=== PATIENT | male | born 1980 | race Caucasian/White ===

== ENCOUNTER 2016-08-05 09:10 | Emergency (ER) | payer OTHER ==
[~2016-08-05] VITALS: Ht 177.8 cm; Wt 79.9 kg
[~2016-08-05 09:10] MED LIST: BUPR300T43 PO; BUSP15TA70 PO; CITA10TA4 PO; LISI-729 PO
[2016-08-05 09:17] VITALS: TEMP 37; Ht 177.8 cm; Wt 79.9 kg
--- NOTE | 2016-08-05 11:29 | DIAGNOSTIC IMAGING REPORT ---
MRI OF THE RIGHT HINDFOOT CLINICAL HISTORY: Right Achilles pain and swelling COMPARISON STUDY: 02/25/2007 FINDINGS: Imaging was performed in the sagittal, coronal, and axial planes. There is accessory ossicle versus old ununited fracture fragment involving the posterior malleolus of the distal tibia. There are secondary degenerative changes with subchondral cysts and reactive marrow edema. There is fusiform enlargement of the Achilles tendon which measures 21 x 20 mm. There is abnormal T2 signal within the tendon substance. The findings are consistent with a partial tear. There is slight flattening of the talar dome. This remains unchanged the prior 2006 conventional radiographic study. This may be developmental. No abnormalities the plantar fascia are visualized. There is no evidence of major ligamentous disruption. IMPRESSION: 1. Marked fusiform enlargement of the Achilles tendon. The findings are consistent with a tendinopathy with an extensive partial thickness tear. 2. Accessory ossicle versus an old ununited fracture fragment involving the posterior malleolus of the distal tibia. There are secondary degenerative changes present. Electronically signed by: Олег Hernandez M.D. 08/05/2016 11:28 AM Dictated Date/Time: 08/05/2016 11:21 AM
--- NOTE | 2016-08-05 12:04 | EMERGENCY ROOM VISIT NOTE ---
History Report prepared by Arronibsherie: Flori Rivas Under the Supervision of: Dr. Scotty Berg D.O. First contact with patient: 09:38 Chief Complaint: HEEL PAIN Stated Complaint: LARGE KNOT ON ACHILLES TENDON History of Present Illness The patient is a 36 year old male who presents to the Emergency Room with complaints of worsening right posterior heel pain that began about a month ago. He states that he woke up with swelling around his Achilles tendon a month ago. He notes that he did not have any change in his physical activity and did not recall any injuries. He had an x-ray at his PCP's office. He then had an MRI scheduled, but could not make his appointment and has not had the MRI yet. Since then, his pain has continued to worsen. He notes that his swelling is not too bad in the morning but worsens throughout the day. His pain is worse with bearing weight and walking. Per significant other, the patient cannot take NSAIDs due to nephrotic syndrome. Source of History: patient Onset: a month ago Position: foot (right posterior heel) Timing: worsening Modifying Factors (Worsening): other (bearing weight, walking) Review of Systems See HPI for pertinent positives & negatives. A total of 10 systems reviewed and were otherwise negative. Past Medical & Surgical Medical Problems: (1) CHF (congestive heart failure) Family History FHx: cancer Social History Smoking Status: Current Every Day Smoker Alcohol Use: occasionally Drug Use: none Marital Status: single Housing Status: lives with family Occupation Status: employed Current/Historical Medications Scheduled Bupropion Hcl (Bupropion Hcl Xl), 300 MG PO DAILY Lisinopril (Zestril), 5 MG PO DAILY Allergies Coded Allergies: NSAIDs (Verified Allergy, Unknown, Unknown, 08/05/16) Reported by PT Poison Kerry Extract/Poison [place] Extra (Verified Adverse Reaction, Intermediate, RASH, 08/05/16) Physical Exam Vital Signs Date Time Temp Pulse Resp B/P Pulse Ox O2 Delivery O2 Flow Rate FiO2 08/05/16 11:25 75 18 142/77 99 Room Air 08/05/16 09:17 37.0 87 18 126/80 99 Room Air Physical Exam CONSTITUTIONAL/VITAL SIGNS: Reviewed / noted above. GENERAL: Non-toxic in appearance. INTEGUMENTARY: Warm, dry, and [place]. HEAD: Normocephalic. EYES: without scleral icterus or trauma. ENT/OROPHARYNX: clear and moist. LYMPHADENOPATHY/NECK: Is supple without lymphadenopathy or meningismus. RESPIRATORY: Lungs clear and equal. CARDIOVASCULAR: Regular rate and rhythm. GI/ABDOMEN: Soft and nontender. No organomegaly or pulsatile mass. No rebound or guarding. Normal bowel sounds. EXTREMITIES: Warm and well perfused. There is swelling to the right Achilles with some tenderness, no redness. BACK: No CVA tenderness. NEUROLOGICAL: Intact without focal deficits. PSYCHIATRIC: normal affect. MUSCULOSKELETAL: Normally developed with good muscle tone. Medical Decision & Procedures ER Provider Diagnostic Interpretation: Radiology results as stated below per my review and radiologist interpretation: MRI OF THE RIGHT HINDFOOT CLINICAL HISTORY: Right Achilles pain and swelling COMPARISON STUDY: 02/25/2007 FINDINGS: Imaging was performed in the sagittal, coronal, and axial planes. There is accessory ossicle versus old ununited fracture fragment involving the posterior malleolus of the distal tibia. There are secondary degenerative changes with subchondral cysts and reactive marrow edema. There is fusiform enlargement of the Achilles tendon which measures 21 x 20 mm. There is abnormal T2 signal within the tendon substance. The findings are consistent with a partial tear. There is slight flattening of the talar dome. This remains unchanged the prior 2006 conventional radiographic study. This may be developmental. No abnormalities the plantar fascia are visualized. There is no evidence of major ligamentous disruption. IMPRESSION: 1. Marked fusiform enlargement of the Achilles tendon. The findings are consistent with a tendinopathy with an extensive partial thickness tear. 2. Accessory ossicle versus an old ununited fracture fragment involving the posterior malleolus of the distal tibia. There are secondary degenerative changes present. Electronically signed by: Олег Hernandez M.D. 08/05/2016 11:28 AM Dictated Date/Time: 08/05/2016 11:21 AM ED Course 0942: The patient was evaluated in room D2. A complete history and physical examination was performed. 1152: On reevaluation, the patient is resting comfortably. I discussed the results and findings with the patient. He verbalized agreement of the treatment plan. The patient was discharged home. Medical Decision Differential includes but is not limited to tendon injury, fracture, infection, other inflammatory process. This is a 36-year-old male who presents to the ED with a chief complaint of ankle pain for several weeks. He has a lump on his Achilles tendon. He has seen his PCP and had an x-ray performed. An MRI was recommended but has not been done yet. Exam reveals a swollen area overlying the Achilles tendon. MRI today reveals tendinopathy with partial-thickness tear of the Achilles tendon. There is also accessory ossicle versus an old unified fracture of the posterior malleolus. The patient was told the results of the tests. He was given an excuse for work today. He was given a referral to orthopedics. He has seen [facility] in the past. He is felt to be stable for discharge. Impression Primary Impression: tendonopathy achilles tendon Additional Impression: partial thickness tear achilles tendon Scribe Attestation The scribe's documentation has been prepared under my direction and personally reviewed by me in its entirety. I confirm that the note above accurately reflects all work, treatment, procedures, and medical decision making performed by me. Departure Information Dispostion Home / Self-Care Referrals No Doctor, Assigned (PCP) Jose BaltazarDDamionO. Forms HOME CARE DOCUMENTATION FORM, Recheck blood pressure in how many weeks?: 1 IMPORTANT VISIT INFORMATION, WORK / SCHOOL INSTRUCTIONS Patient Instructions My [facility] Additional Instructions Follow-up with orthopedics. Return for any concerns. Problem Qualifiers
[2016-08-05 12:06] VITALS: BP 118/86; PULSE 68; O2SAT 99
== END 2016-08-05 12:09 | disposition home or self-care (01) ==
LOC: C.EDB 09:13 → C.EDD 12:09
DX: M76.61 Achilles tendinitis, right leg (principal); S96.811A Strain of other specified muscles and tendons at ankle and foot level, right foot, initial encounter; X58.XXXA Exposure to other specified factors, initial encounter; I50.9 Heart failure, unspecified; N04.9 Nephrotic syndrome with unspecified morphologic changes; Z80.9 Family history of malignant neoplasm, unspecified; F17.210 Nicotine dependence, cigarettes, uncomplicated; Z79.899 Other long term (current) drug therapy